=== PATIENT | female | born 1985 | race Caucasian/White ===

== ENCOUNTER 2016-08-23 17:10 | Outpatient (CLI) | payer OTHER ==
[2016-08-23] VITALS (10 sets, daily range): BP systolic 140–176; BP diastolic 74–99
[~2016-08-23] VITALS: Ht 162.6 cm; Wt 137.7 kg
[2016-08-23 18:25] LABS: EOSINOPHIL (%) 0.3 % (0-5); HEMATOCRIT 35.8 % (36.0-46.0); IMMATURE GRANULOCYTE (%) 1.2 % (0.0-0.7); IMMATURE GRANULOCYTE COUNT 0.2 K/uL; MCH 29.3 PG (29.0-34.0); MCV 88.8 FL (83-99); MEAN PLAT.VOLUME 10.8 uM^3 (9.5-12.4); MONOCYTE (%) 6.9 % (3-12); MONOCYTE COUNT 0.9 K/uL (0-0.8); NEUTROPHIL (%) 76.3 % (45-76); NEUTROPHIL COUNT 10.2 K/uL (1.8-6.4); PLATELET COUNT 236 K/uL (156-360); RBC DIS.WIDTH-CV 13.4 % (11.8-14.6); RBC DIS.WIDTH-SD 43.1 % (39-53); RED BLOOD COUNT 4.03 M/uL (3.80-5.20); WHITE BLOOD COUNT 13.3 K/uL (4.1-10.2)
[2016-08-23 18:37] LABS: UR CREATININE CONCENTRATION 148.9 MG/DL
[2016-08-23 18:41] LABS: ANION GAP 9 MEQ/L (2-14); CHLORIDE 110 MEQ/L (99-109); SAMPLE HEMOLYSIS CHECK 0; SAMPLE ICTERIC CHECK 0; SAMPLE LIPEMIA CHECK 0; SODIUM 142 MEQ/L (136-147); TOTAL BILIRUBIN 0.2 MG/DL (0.0-1.0)
[2016-08-23 18:47] LABS: ALKALINE PHOSPHATASE 134 IU/L (3-129); GFR ESTIMATE (CALCULATED) > 59 mL/min/; GLUCOSE 85 mg/dL (70-99); UREA NITROGEN (BUN) 13 mg/dL (9-23)
[2016-08-23] MEDS ORDERED: PRENATAL TABLE1 EAC3 PO (20:30)
[2016-08-23] MEDS ORDERED: ASPIRIN81 M2 PO (20:32)
== END 2016-08-23 20:45 | disposition home or self-care (01) ==
LOC: LDRP-OP 17:10 → 2WEST 17:11 → LDRP-OP 10-12 16:51
PROVIDERS: Midwife
DX: O13.3 Gestational [pregnancy-induced] hypertension without significant proteinuria, third trimester (principal); Z3A.36 36 weeks gestation of pregnancy; Z68.42 Body mass index [BMI] 45.0-49.9, adult; O99.283 Endocrine, nutritional and metabolic diseases complicating pregnancy, third trimester; E72.19 Other disorders of sulfur-bearing amino-acid metabolism
CPT/HCPCS: 59025; 80053; 82570; 84156; 85025; G0378

== ENCOUNTER 2016-08-29 17:18 | Outpatient (CLI) | payer OTHER ==
[~2016-08-29] VITALS: Ht 162.6 cm; Wt 132.0 kg
[~2016-08-29 17:18] MED LIST: ASPIRIN81 M2 PO; PRENATAL TABLE1 EAC3 PO
[2016-08-29 17:58] VITALS: BP 148/76
[2016-08-29 18:02] LABS: EOSINOPHIL (%) 0.1 % (0-5); HEMATOCRIT 34.7 % (36.0-46.0); IMMATURE GRANULOCYTE (%) 0.7 % (0.0-0.7); IMMATURE GRANULOCYTE COUNT 0.1 K/uL; LYMPHOCYTE COUNT 1.9 K/uL (1.0-2.8); MCH 29.5 PG (29.0-34.0); MCHC 33.1 G/DL (30.0-36.0); MEAN PLAT.VOLUME 11.1 uM^3 (9.5-12.4); MONOCYTE (%) 7.4 % (3-12); NEUTROPHIL (%) 77.8 % (45-76); NEUTROPHIL COUNT 10.5 K/uL (1.8-6.4); PLATELET COUNT 234 K/uL (156-360); RBC DIS.WIDTH-CV 13.6 % (11.8-14.6); RBC DIS.WIDTH-SD 43.9 % (39-53); WHITE BLOOD COUNT 13.5 K/uL (4.1-10.2)
[2016-08-29 18:14] VITALS: BP 140/72
[2016-08-29 18:27] LABS: ALKALINE PHOSPHATASE 124 IU/L (3-129); ANION GAP 10 MEQ/L (2-14); CHLORIDE 110 MEQ/L (99-109); GFR ESTIMATE (CALCULATED) > 59 mL/min/; GLUCOSE 98 mg/dL (70-99); POTASSIUM 3.9 MEQ/L (3.7-5.4); SAMPLE HEMOLYSIS CHECK 0; SAMPLE ICTERIC CHECK 0; SAMPLE LIPEMIA CHECK 0; SODIUM 141 MEQ/L (136-147); TOTAL BILIRUBIN 0.3 MG/DL (0.0-1.0); UREA NITROGEN (BUN) 15 mg/dL (9-23)
[2016-08-29 18:40] VITALS: BP 144/82
[2016-08-29 18:56] VITALS: BP 147/81
[2016-08-29 19:11] VITALS: BP 150/79
[2016-08-29 19:18] LABS: UR CREATININE CONCENTRATION 135.8 MG/DL
[2016-08-29 19:26] VITALS: BP 154/82
== END 2016-08-29 19:55 | disposition home or self-care (01) ==
LOC: LDRP-OP 17:18 → 2WEST 17:19 → LDRP-OP 10-12 21:19
PROVIDERS: Nurse Practitioner
DX: O16.3 Unspecified maternal hypertension, third trimester (principal); O99.89 Other specified diseases and conditions complicating pregnancy, childbirth and the puerperium; Z3A.37 37 weeks gestation of pregnancy
CPT/HCPCS: 59025; 80053; 82570; 84156; 85025; G0378

== ENCOUNTER 2016-09-11 17:34 | Inpatient (IN) | payer OTHER ==
[~2016-09-11] VITALS: Ht 162.6 cm; Wt 139.1 kg
[2016-09-11] VITALS (11 sets, daily range): BP systolic 128–171; BP diastolic 71–85
[2016-09-11 18:51] LABS: HEMATOCRIT 34.3 % (36.0-46.0); MCH 30.1 PG (29.0-34.0); MCHC 33.8 G/DL (30.0-36.0); MCV 89.1 FL (83-99); RBC DIS.WIDTH-CV 13.6 % (11.8-14.6); RBC DIS.WIDTH-SD 44.1 % (39-53); RED BLOOD COUNT 3.85 M/uL (3.80-5.20); WHITE BLOOD COUNT 14.1 K/uL (4.1-10.2)
[2016-09-11 19:13] LABS: ANION GAP 9 MEQ/L (2-14); CHLORIDE 107 MEQ/L (99-109); POTASSIUM 4.3 MEQ/L (3.7-5.4); SAMPLE HEMOLYSIS CHECK 0; SAMPLE ICTERIC CHECK 0; SAMPLE LIPEMIA CHECK 0; SODIUM 139 MEQ/L (136-147); TOTAL BILIRUBIN 0.2 MG/DL (0.0-1.0)
[2016-09-11 19:18] LABS: ALKALINE PHOSPHATASE 136 IU/L (3-129); GFR ESTIMATE (CALCULATED) > 59 mL/min/; GLUCOSE 76 mg/dL (70-99); UREA NITROGEN (BUN) 11 mg/dL (9-23)
[2016-09-11 19:18] LABS: UR CREATININE CONCENTRATION 87.7 MG/DL
[2016-09-11 19:23] LABS: EOSINOPHIL (%) 0.3 % (0-5); HEMATOLOGY COMMENT 1 SMEAR COMPATIBLE; IMMATURE GRANULOCYTE COUNT 0.1 K/uL; MEAN PLAT.VOLUME 11.2 uM^3 (9.5-12.4); MONOCYTE (%) 7.4 % (3-12); MONOCYTE COUNT 1.1 K/uL (0-0.8); NEUTROPHIL (%) 77.3 % (45-76); NEUTROPHIL COUNT 10.9 K/uL (1.8-6.4); PLAT.SUFFICIENCY ADEQUATE; PLATELET COUNT UNABLE TO REPORT K/uL (156-360); USER ID NJV
[2016-09-11 20:58] LABS: EOSINOPHIL (%) 0.2 % (0-5); HEMATOCRIT 36.6 % (36.0-46.0); IMMATURE GRANULOCYTE (%) 0.8 % (0.0-0.7); IMMATURE GRANULOCYTE COUNT 0.1 K/uL; LYMPHOCYTE COUNT 2.5 K/uL (1.0-2.8); MCH 28.9 PG (29.0-34.0); MCHC 32.2 G/DL (30.0-36.0); MCV 89.7 FL (83-99); MONOCYTE (%) 6.1 % (3-12); NEUTROPHIL COUNT 12.9 K/uL (1.8-6.4); RBC DIS.WIDTH-CV 13.6 % (11.8-14.6); RBC DIS.WIDTH-SD 44.4 % (39-53); RED BLOOD COUNT 4.08 M/uL (3.80-5.20); WHITE BLOOD COUNT 16.6 K/uL (4.1-10.2)
[2016-09-11 21:54] LABS: MEAN PLAT.VOLUME 11.5 uM^3 (9.5-12.4); PLAT.SUFFICIENCY NORMAL; PLATELET COUNT 236 K/uL (156-360); USER ID NJV
[2016-09-12] VITALS (38 sets, daily range): BP systolic 104–182; BP diastolic 51–107
[2016-09-12] MEDS ORDERED: ENDOCET 5-3251 EACH PO (18:39)
[2016-09-12] MEDS ORDERED: IBUPROFEN800 MG PO (18:39)
[2016-09-13] VITALS (7 sets, daily range): BP systolic 131–172; BP diastolic 67–83
[2016-09-13 09:01] LABS: EOSINOPHIL (%) 0.1 % (0-5); HEMATOCRIT 30.1 % (36.0-46.0); IMMATURE GRANULOCYTE (%) 0.6 % (0.0-0.7); IMMATURE GRANULOCYTE COUNT 0.1 K/uL; LYMPHOCYTE COUNT 1.6 K/uL (1.0-2.8); MCH 30.1 PG (29.0-34.0); MCHC 33.6 G/DL (30.0-36.0); MCV 89.6 FL (83-99); MONOCYTE COUNT 1.1 K/uL (0-0.8); NEUTROPHIL (%) 80.3 % (45-76); NEUTROPHIL COUNT 11.5 K/uL (1.8-6.4); PLATELET COUNT 183 K/uL (156-360); RBC DIS.WIDTH-CV 13.8 % (11.8-14.6); RBC DIS.WIDTH-SD 45.1 % (39-53); RED BLOOD COUNT 3.36 M/uL (3.80-5.20); WHITE BLOOD COUNT 14.3 K/uL (4.1-10.2)
[2016-09-14] VITALS (7 sets, daily range): BP systolic 145–176; BP diastolic 75–97
[2016-09-15 03:25] VITALS: BP 134/80
[2016-09-15 08:25] VITALS: BP 143/81
[2016-09-15 12:00] VITALS: BP 144/76
[2016-09-15] MEDS ORDERED: NIFEDIPINE ER30 MG PO (12:16)
[2016-09-15 15:30] VITALS: BP 148/75
[2016-09-15 19:21] VITALS: BP 163/92
[2016-09-15 23:53] VITALS: BP 157/86
[2016-09-16 02:48] VITALS: BP 150/78
[2016-09-16 08:45] VITALS: BP 138/85
== END 2016-09-16 14:40 | disposition home or self-care (01) | DRG 766 ==
LOC: LDRP-OP 17:34 → 2WEST 17:35 → LDRP-OP 10-12 21:40
PROVIDERS: Advanced Practice Midwife; Obstetrics & Gynecology
PROC: 3E0P7GC Introduction of Other Therapeutic Substance into Female Reproductive, Via Natural or Artificial Opening (ICD-10-PCS; principal; 2016-09-12)
PROC: 3E0R3CZ (ICD-10-PCS; principal; 2016-09-12)
PROC: 10D00Z1 Extraction of Products of Conception, Low, Open Approach (ICD-10-PCS; principal; 2016-09-12)
PROC: 00HU33Z Insertion of Infusion Device into Spinal Canal, Percutaneous Approach (ICD-10-PCS; principal; 2016-09-12)
DX: O41.1230 Chorioamnionitis, third trimester, not applicable or unspecified (principal); O99.214 Obesity complicating childbirth; E66.01 Morbid (severe) obesity due to excess calories; O13.4 Gestational [pregnancy-induced] hypertension without significant proteinuria, complicating childbirth; O77.9 Labor and delivery complicated by fetal stress, unspecified; Z3A.39 39 weeks gestation of pregnancy; Z37.0 Single live birth
CPT/HCPCS: 80053; 82570; 84156; 85025; 85025 91; C1755; G0378; J0690; J2274; J2405; J2765; J3010; J7120